=== PATIENT | male | born 1940 | race Caucasian/White ===

== ENCOUNTER 2021-05-27 23:32 | Emergency (ER) | payer BC, MEDICAID ==
[~2021-05-27] VITALS: Ht 170.2 cm; Wt 83.9 kg
[2021-05-27 23:32] VITALS: BP_SYST 147
[2021-05-28] MEDS ORDERED: NACL 0.9% 1,000 ML IV ONE (01:15)
[2021-05-28 02:13] LABS: ANION GAP 14 (5-15); CALCIUM 8.3 mg/dL (8.4-11.0); CHLORIDE 106 mmol/L (98-107); CREATININE 0.65 mg/dL (0.55-1.30); GLUCOSE 100 mg/dL (70-99); POTASSIUM 3.1 mmol/L (3.5-5.1); SODIUM SERUM 144 mmol/L (136-145); UREA NITROGEN, BLOOD 11 mg/dL (8-21)
[2021-05-28 02:19] LABS: ALANINE AMINOTRANSFERASE 33 U/L (12-78); ALBUMIN 3.5 g/dL (3.4-4.8); ALCOHOL, BLOOD 147 mg/dL (<10); ASPARTATE AMINOTRANSFERASE 36 U/L (10-37); TOTAL BILIRUBIN 0.5 mg/dL (0.0-1.0)
[2021-05-28] MEDS ORDERED: ACETAMINOPHEN 500 MG TABLET PO ONE (03:00)
[2021-05-28] MEDS ORDERED: ONDANSETRON HCL 4 MG/2 ML VIAL IVP ONE (03:00)
[2021-05-28] MEDS ORDERED: PANTOPRAZOLE SODIUM 40 MG/VIAL (PROTONIX) IVP ONE (04:15)
[2021-05-28] MEDS ORDERED: METOCLOPRAMIDE HCL 10 MG/2 ML VIAL IVP ONE (04:15)
[2021-05-28] MEDS ORDERED: FOLIC ACID 1 MG, THIAMINE HCL 100 MG, MAGNESIUM SULFATE 1 GM, MVI 10 ML in NACL 0.9% 1,... IV ONE (04:15)
[2021-05-28] MEDS ORDERED: FOLIC ACID 5 MG/ML VIAL IV ONE (04:19)
[2021-05-28] MEDS ORDERED: MAGNESIUM SULFATE 1 GM/2 ML VIAL ONE (04:19)
[2021-05-28] MEDS ORDERED: THIAMINE HCL 100 MG/ML VIAL ONE (04:19)
[2021-05-28] MEDS ORDERED: LORazepam 2 MG/ML VIAL ONE (04:59)
[2021-05-28] MEDS ORDERED: LORazepam 2 MG/ML VIAL IVP ONE (05:00)
[2021-05-28 05:18] LABS: BASOPHILS % (AUTO) 0.9 % (0.0-2.0); EOSINOPHILS % (AUTO) 0.8 % (0.0-4.0); HEMATOCRIT 35.8 % (36-54); HEMOGLOBIN 11.9 g/dL (14.0-18.0); LYMPHOCYTES # (AUTO) 1.3 K/uL (1.0-5.5); LYMPHOCYTES % (AUTO) 35.4 % (20.5-51.5); MEAN CORPUSCULAR HEMOGLOBIN 28 pg (27-31); MEAN CORPUSCULAR HGB CONC 33 % (32-36); MEAN CORPUSCULAR VOLUME 85 fL (79.0-98.0); MONOCYTES # (AUTO) 0.3 K/uL (0.0-1.0); MONOCYTES % (AUTO) 9.6 % (1.7-9.3); NEUTROPHILS # (AUTO) 1.9 K/uL (1.8-7.7); NEUTROPHILS % (AUTO) 53.3 % (40.0-70.0); PLATELET COUNT (AUTO) 86 K/uL (130-430); RED BLOOD CELL COUNT(AUTO) 4.21 MIL/uL (4.2-6.2); WHITE BLOOD COUNT (AUTO) 3.6 K/uL (4.8-10.8)
[2021-05-28] MEDS ORDERED: KCL 20 mEq in 100 mL (PREMIX) 100 ML IV ONE (05:45)
[2021-05-28] MEDS ORDERED: PANT20TA2 PO (06:16)
[2021-05-28] MEDS ORDERED: DOXY25TA61 PO (06:18)
[2021-05-28 08:45] VITALS: BP_SYST 129
== END 2021-05-28 11:20 | disposition home or self-care (01) ==
LOC: SED 23:32
DX: F10.239 Alcohol dependence with withdrawal, unspecified (principal); E87.6 Hypokalemia; Z79.899 Other long term (current) drug therapy; Y90.6 Blood alcohol level of 120-199 mg/100 ml
CPT/HCPCS: 36415; 80053; 85025; 96361; 96365; 96366; 96368; 96375; 99285; C9113; G0482; J2060; J2405; J2765; J3480; J7030; J3411; J3475; J3490

== ENCOUNTER 2021-06-14 19:28 | Emergency (ER) | payer BC, MEDICAID ==
[~2021-06-14] VITALS: Ht 162.6 cm; Wt 63.5 kg
[2021-06-14 19:28] VITALS: BP_SYST 136
[~2021-06-14 19:28] MED LIST: DOXY25TA61 PO; PANT20TA2 PO
[2021-06-14] MEDS ORDERED: NACL 0.9% 1,000 ML IV ONE (20:15)
[2021-06-14 20:31] LABS: HEMOGLOBIN 11.3 g/dL (14.0-18.0); MEAN CORPUSCULAR VOLUME 87 fL (79.0-98.0); MONOCYTES # (AUTO) 0.3 K/uL (0.0-1.0); PLATELET COUNT (AUTO) 70 K/uL (130-430); RED CELL DISTRIBUTION WIDTH 17.9 % (9.0-15.0); WHITE BLOOD COUNT (AUTO) 3.3 K/uL (4.8-10.8)
[2021-06-14 20:45] LABS: BASOPHILS % (AUTO) 1.4 % (0.0-2.0); EOSINOPHILS % (AUTO) 0.3 % (0.0-4.0); HEMATOCRIT 33.8 % (36-54); LYMPHOCYTES # (AUTO) 0.9 K/uL (1.0-5.5); LYMPHOCYTES % (AUTO) 28.4 % (20.5-51.5); MEAN CORPUSCULAR HEMOGLOBIN 29 pg (27-31); MEAN CORPUSCULAR HGB CONC 34 % (32-36); MONOCYTES % (AUTO) 8.4 % (1.7-9.3); NEUTROPHILS % (AUTO) 61.5 % (40.0-70.0)
[2021-06-14 20:47] LABS: ANION GAP 16 (5-15); CALCIUM 8.2 mg/dL (8.4-11.0); CHLORIDE 102 mmol/L (98-107); CREATININE 0.83 mg/dL (0.55-1.30); GLUCOSE 69 mg/dL (70-99); POTASSIUM 3.5 mmol/L (3.5-5.1); SODIUM SERUM 139 mmol/L (136-145); UREA NITROGEN, BLOOD 17 mg/dL (8-21)
[2021-06-14 20:52] LABS: ALANINE AMINOTRANSFERASE 50 U/L (12-78); ALBUMIN 3.8 g/dL (3.4-4.8); ALCOHOL, BLOOD 289 mg/dL (<10); ASPARTATE AMINOTRANSFERASE 77 U/L (10-37); TOTAL BILIRUBIN 0.9 mg/dL (0.0-1.0)
[2021-06-15 05:39] VITALS: BP_SYST 157
[2021-07-06] MEDS ORDERED: AMIT25TA10 PO (12:17)
[2021-07-06] MEDS ORDERED: ASA81 PO (12:17)
[2021-07-06] MEDS ORDERED: LISI10TA29 PO (12:17)
[2021-07-06] MEDS ORDERED: METO-542 PO (12:17)
== END 2021-06-15 06:02 | disposition home or self-care (01) ==
LOC: SED 19:28
DX: F10.229 Alcohol dependence with intoxication, unspecified (principal); Z79.899 Other long term (current) drug therapy; Y90.8 Blood alcohol level of 240 mg/100 ml or more
CPT/HCPCS: 36415; 70450; 71045; 76376; 80053; 82962; 84484; 85025; 93005; 96360; 99285; G0482; J7030

== ENCOUNTER 2021-07-11 21:42 | Emergency (ER) | payer BC, MEDICAID ==
[2021-07-11 21:42] VITALS: BP_SYST 133
[~2021-07-11 21:42] MED LIST changes: +AMIT25TA10 PO; +ASA81 PO; +LISI10TA29 PO; +METO-542 PO
[2021-07-11] MEDS ORDERED: IBUPROFEN 600 MG TABLET PO ONE (23:45)
[2021-07-12 00:33] LABS: BILIRUBIN,URINE NEGATIVE (NEGATIVE); CLARITY/URINE CLEAR (CLEAR); COLOR,URINE YELLOW (YELLOW); GLUCOSE,URINE NEGATIVE (NEGATIVE); KETONES,URINE NEGATIVE (NEGATIVE); LEUKOCYTE ESTERASE ,URINE NEGATIVE (NEGATIVE); NITRITE, URINE NEGATIVE (NEGATIVE); PROTEIN URINE NEGATIVE (NEGATIVE); UROBILINOGEN,URINE 0.2 (0.2-1.0)
[2021-07-12 00:44] LABS: BLOOD, URINE TRACE (NEGATIVE)
[2021-07-12 00:46] LABS: MUCUS,URINE None Seen /LPF (None Seen); RBC,URINE 0-3 /HPF (0-3); WBC,URINE 0-3 /HPF (0-3)
[2021-07-12 00:50] LABS: BARBITURATE, URINE NEGATIVE (NEG <=200); BENZODIAZEPINE, URINE POSITIVE (NEG <=150); METHAMPHETAMINES SCREEN,URINE NEGATIVE (NEG <=500); URINE AMPHETAMINE NEGATIVE (NEG <=500); URINE METHADONE NEGATIVE (NEG <=200)
[2021-07-12 00:51] LABS: CANNABINOID, URINE NEGATIVE (NEG <=50); COCAINE, URINE NEGATIVE (NEG <=150); OPIATE, URINE NEGATIVE (NEG <=100); PHENCYCLIDINE SCREEN,URINE NEGATIVE (NEG <=25); UR TRICYCLIC ANTIDEPRESSANTS POSITIVE (NEG <=300); URINE OXYCODONE SCREEN NEGATIVE (NEG <=100); URINE PROPOXYPHENE SCREEN NEGATIVE (NEG <=300)
[2021-07-12 01:00] LABS: BASOPHILS % (AUTO) 1.1 % (0.0-2.0); EOSINOPHILS % (AUTO) 0.8 % (0.0-4.0); HEMATOCRIT 32.1 % (36-54); HEMOGLOBIN 10.8 g/dL (14.0-18.0); LYMPHOCYTES # (AUTO) 0.6 K/uL (1.0-5.5); LYMPHOCYTES % (AUTO) 17.5 % (20.5-51.5); MEAN CORPUSCULAR HEMOGLOBIN 29 pg (27-31); MEAN CORPUSCULAR HGB CONC 34 % (32-36); MEAN CORPUSCULAR VOLUME 86 fL (79.0-98.0); MONOCYTES # (AUTO) 0.3 K/uL (0.0-1.0); MONOCYTES % (AUTO) 8.9 % (1.7-9.3); NEUTROPHILS # (AUTO) 2.6 K/uL (1.8-7.7); NEUTROPHILS % (AUTO) 71.7 % (40.0-70.0); PLATELET COUNT (AUTO) 117 K/uL (130-430); RED BLOOD CELL COUNT(AUTO) 3.76 MIL/uL (4.2-6.2); RED CELL DISTRIBUTION WIDTH 15.4 % (9.0-15.0); WHITE BLOOD COUNT (AUTO) 3.6 K/uL (4.8-10.8)
[2021-07-12 01:04] LABS: PROTHROMBIN TIME 10.3 SECS (9.5-12.5)
[2021-07-12 01:05] LABS: ANION GAP 14 (5-15); CALCIUM 8.3 mg/dL (8.4-11.0); CHLORIDE 102 mmol/L (98-107); CREATININE 0.88 mg/dL (0.55-1.30); GLUCOSE 110 mg/dL (70-99); POTASSIUM 4.3 mmol/L (3.5-5.1); SODIUM SERUM 136 mmol/L (136-145); UREA NITROGEN, BLOOD 19 mg/dL (8-21)
[2021-07-12 01:09] LABS: ALANINE AMINOTRANSFERASE 24 U/L (12-78); ALBUMIN 3.5 g/dL (3.4-4.8); ALCOHOL, BLOOD 74 mg/dL (<10); ASPARTATE AMINOTRANSFERASE 21 U/L (10-37); TOTAL BILIRUBIN 0.2 mg/dL (0.0-1.0)
[2021-07-12] MEDS ORDERED: HYDROcodone/ACETAMIN 7.5-325 MG TAB PO ONE (04:00)
[2021-07-12 04:15] LABS: BACTERIA,URINE RARE /HPF (None Seen)
[2021-07-12 05:36] VITALS: BP_SYST 163
== END 2021-07-12 05:40 | disposition home or self-care (01) ==
LOC: SED 21:42
DX: S42.352A Displaced comminuted fracture of shaft of humerus, left arm, initial encounter for closed fracture (principal); S09.90XA Unspecified injury of head, initial encounter; F10.129 Alcohol abuse with intoxication, unspecified; D53.9 Nutritional anemia, unspecified; Z79.82 Long term (current) use of aspirin; Z79.899 Other long term (current) drug therapy; Y90.3 Blood alcohol level of 60-79 mg/100 ml; W18.39XA Other fall on same level, initial encounter; Y93.89 Activity, other specified; Y92.89 Other specified places as the place of occurrence of the external cause; Y99.8 Other external cause status
CPT/HCPCS: 36415; 70450; 71045; 73030; 76376; 80053; 80307; 81000; 82962; 84484; 85025; 85610; 85730; 93005; 99285; G0482

== ENCOUNTER 2021-07-13 19:36 | Inpatient (IN) | payer BC, MEDICAID ==
[~2021-07-13] VITALS: Ht 162.6 cm; Wt 65.3 kg
[2021-07-13 19:45] VITALS: BP_SYST 118
[2021-07-13] MEDS ORDERED: chlordiazePOXIDE HCL 25 MG CAPSULE PO ONE (21:15)
[2021-07-13] MEDS ORDERED: NACL 0.9% 1,000 ML IV ONE (21:15)
[2021-07-13] MEDS ORDERED: FOLIC ACID 1 MG, THIAMINE HCL 100 MG, MAGNESIUM SULFATE 2 GM, MVI 10 ML in NACL 0.9% 1,... IV ONE (21:15)
[2021-07-13 21:18] LABS: BASOPHILS % (AUTO) 0.2 % (0.0-2.0); HEMATOCRIT 31.3 % (36-54); HEMOGLOBIN 10.4 g/dL (14.0-18.0); LYMPHOCYTES # (AUTO) 0.6 K/uL (1.0-5.5); LYMPHOCYTES % (AUTO) 7.8 % (20.5-51.5); MEAN CORPUSCULAR HEMOGLOBIN 29 pg (27-31); MEAN CORPUSCULAR HGB CONC 33 % (32-36); MEAN CORPUSCULAR VOLUME 87 fL (79.0-98.0); MONOCYTES # (AUTO) 0.8 K/uL (0.0-1.0); MONOCYTES % (AUTO) 9.2 % (1.7-9.3); NEUTROPHILS # (AUTO) 6.7 K/uL (1.8-7.7); NEUTROPHILS % (AUTO) 82.8 % (40.0-70.0); PLATELET COUNT (AUTO) 152 K/uL (130-430); RED BLOOD CELL COUNT(AUTO) 3.62 MIL/uL (4.2-6.2); RED CELL DISTRIBUTION WIDTH 15.8 % (9.0-15.0); WHITE BLOOD COUNT (AUTO) 8.1 K/uL (4.8-10.8)
[2021-07-13] MEDS ORDERED: THIAMINE HCL 100 MG/ML VIAL ONE (21:27)
[2021-07-13] MEDS ORDERED: MVI 10 ML VIAL IV ONE (21:27)
[2021-07-13] MEDS ORDERED: FOLIC ACID 5 MG/ML VIAL IV ONE (21:27)
[2021-07-13] MEDS ORDERED: MAGNESIUM SULFATE 1 GM/2 ML VIAL ONE (21:27)
[2021-07-13 21:28] LABS: ANION GAP 17 (5-15); CALCIUM 8.5 mg/dL (8.4-11.0); CHLORIDE 100 mmol/L (98-107); CREATININE 1.41 mg/dL (0.55-1.30); GLUCOSE 125 mg/dL (70-99); POTASSIUM 4.4 mmol/L (3.5-5.1); SODIUM SERUM 133 mmol/L (136-145); UREA NITROGEN, BLOOD 20 mg/dL (8-21)
[2021-07-13 21:30] LABS: PROTHROMBIN TIME 10.3 SECS (9.5-12.5)
[2021-07-13 21:34] LABS: ALANINE AMINOTRANSFERASE 27 U/L (12-78); ALBUMIN 3.4 g/dL (3.4-4.8); ALCOHOL, BLOOD 244 mg/dL (<10); ASPARTATE AMINOTRANSFERASE 26 U/L (10-37); TOTAL BILIRUBIN 0.5 mg/dL (0.0-1.0)
[2021-07-13 22:13] LABS: BARBITURATE, URINE NEGATIVE (NEG <=200); BENZODIAZEPINE, URINE POSITIVE (NEG <=150); CANNABINOID, URINE NEGATIVE (NEG <=50); COCAINE, URINE NEGATIVE (NEG <=150); METHAMPHETAMINES SCREEN,URINE NEGATIVE (NEG <=500); OPIATE, URINE POSITIVE (NEG <=100); PHENCYCLIDINE SCREEN,URINE NEGATIVE (NEG <=25); UR TRICYCLIC ANTIDEPRESSANTS NEGATIVE (NEG <=300); URINE AMPHETAMINE NEGATIVE (NEG <=500); URINE METHADONE NEGATIVE (NEG <=200); URINE OXYCODONE SCREEN NEGATIVE (NEG <=100); URINE PROPOXYPHENE SCREEN NEGATIVE (NEG <=300)
[2021-07-14] MEDS: LORazepam 2 MG/ML VIAL IVP PRN ×6 (02:37→22:14)
[2021-07-14] MEDS: KETOROLAC TROMETHAMINE 30 MG VIAL IVP PRN (03:19)
[2021-07-14] MEDS: NACL 0.9% 1,000 ML IV SCH ×3 (03:20→22:38)
[2021-07-14] MEDS ORDERED: DIPHENHYDRAMINE INJ 50 MG/ML VIAL IVP ONE (08:45)
[2021-07-14] MEDS ORDERED: HALOPERIDOL LACTATE 5 MG/ML VIAL IVP ONE (08:45)
[2021-07-14] MEDS: chlordiazePOXIDE HCL 25 MG CAPSULE PO SCH ×3 (08:55→20:43)
[2021-07-14] MEDS ORDERED: OLANZapine IntraMuscular 10 MG VIAL (FOR I.M. INJECTION ONLY) IM ONE (09:30)
[2021-07-14 10:35] VITALS: BP_SYST 119
[2021-07-14 11:00] VITALS: BP_SYST 119
[2021-07-14] MEDS ORDERED: MAGNESIUM SULFATE 50 ML IV PRN (11:00)
[2021-07-14] MEDS ORDERED: FOLIC ACID 1 MG, THIAMINE HCL 100 MG, MAGNESIUM SULFATE 1 GM, MVI 10 ML in NACL 0.9% 1,... IV SCH (11:00)
[2021-07-14] MEDS: FOLIC ACID 1 MG, MVI 10 ML in NACL 0.9% 1,000 ML IV SCH (11:39)
[2021-07-14] MEDS: THIAMINE HCL 100 MG, MAGNESIUM SULFATE 1 GM in NS 100 ML IV SCH (11:39)
[2021-07-14 14:35] LABS: FREE T4 (FREE THYROXINE) 1.3 ng/dl (0.8-1.5); THYROID STIMULATING HORMONE 0.65 uIu/mL (0.36-3.74)
[2021-07-14 16:23] VITALS: BP_SYST 124
[2021-07-15 00:15] VITALS: BP_SYST 127
[2021-07-15] MEDS ORDERED: LACTULOSE 20 GM/30 ML UDC PO ONE (01:00)
[2021-07-15] MEDS: LORazepam 2 MG/ML VIAL IVP PRN ×3 (03:12→16:12)
[2021-07-15 07:22] LABS: EOSINOPHILS % (AUTO) 0.9 % (0.0-4.0); HEMATOCRIT 26.7 % (36-54); HEMOGLOBIN 8.8 g/dL (14.0-18.0); LYMPHOCYTES # (AUTO) 0.7 K/uL (1.0-5.5); LYMPHOCYTES % (AUTO) 18.1 % (20.5-51.5); MEAN CORPUSCULAR HEMOGLOBIN 29 pg (27-31); MEAN CORPUSCULAR HGB CONC 33 % (32-36); MEAN CORPUSCULAR VOLUME 87 fL (79.0-98.0); MONOCYTES # (AUTO) 0.5 K/uL (0.0-1.0); MONOCYTES % (AUTO) 11.9 % (1.7-9.3); NEUTROPHILS # (AUTO) 2.8 K/uL (1.8-7.7); NEUTROPHILS % (AUTO) 68.1 % (40.0-70.0); PLATELET COUNT (AUTO) 122 K/uL (130-430); RED BLOOD CELL COUNT(AUTO) 3.07 MIL/uL (4.2-6.2); RED CELL DISTRIBUTION WIDTH 15.2 % (9.0-15.0); WHITE BLOOD COUNT (AUTO) 4.1 K/uL (4.8-10.8)
[2021-07-15 08:00] VITALS: BP_SYST 122
[2021-07-15 09:37] LABS: ALANINE AMINOTRANSFERASE 18 U/L (12-78); ALBUMIN 2.5 g/dL (3.4-4.8); ANION GAP 11 (5-15); ASPARTATE AMINOTRANSFERASE 23 U/L (10-37); CALCIUM 7.3 mg/dL (8.4-11.0); CHLORIDE 111 mmol/L (98-107); CREATININE 0.63 mg/dL (0.55-1.30); GLUCOSE 86 mg/dL (70-99); PHOSPHORUS 2.8 mg/dL (2.7-4.5); POTASSIUM 3.5 mmol/L (3.5-5.1); SODIUM SERUM 142 mmol/L (136-145); UREA NITROGEN, BLOOD 10 mg/dL (8-21)
[2021-07-15] MEDS: chlordiazePOXIDE HCL 25 MG CAPSULE PO SCH ×3 (10:35→20:31)
[2021-07-15] MEDS: NACL 0.9% 1,000 ML IV SCH ×2 (10:35→16:15)
[2021-07-15] MEDS: LACTULOSE 20 GM/30 ML UDC PO SCH (10:35)
[2021-07-15 12:00] VITALS: BP_SYST 127
[2021-07-15] MEDS: FOLIC ACID 1 MG, MVI 10 ML in NACL 0.9% 1,000 ML IV SCH (12:33)
[2021-07-15] MEDS: THIAMINE HCL 100 MG, MAGNESIUM SULFATE 1 GM in NS 100 ML IV SCH (12:34)
[2021-07-15 15:31] LABS: BARBITURATE, URINE NEGATIVE (NEG <=200)
[2021-07-15 15:32] LABS: BENZODIAZEPINE, URINE POSITIVE (NEG <=150); CANNABINOID, URINE NEGATIVE (NEG <=50); COCAINE, URINE NEGATIVE (NEG <=150); METHAMPHETAMINES SCREEN,URINE NEGATIVE (NEG <=500); OPIATE, URINE NEGATIVE (NEG <=100); PHENCYCLIDINE SCREEN,URINE NEGATIVE (NEG <=25); UR TRICYCLIC ANTIDEPRESSANTS NEGATIVE (NEG <=300); URINE AMPHETAMINE NEGATIVE (NEG <=500); URINE METHADONE NEGATIVE (NEG <=200); URINE OXYCODONE SCREEN NEGATIVE (NEG <=100); URINE PROPOXYPHENE SCREEN NEGATIVE (NEG <=300)
[2021-07-15 16:00] VITALS: BP_SYST 118
[2021-07-15 20:30] VITALS: BP_SYST 124
[2021-07-16 00:48] VITALS: BP_SYST 154
[2021-07-16] MEDS: NACL 0.9% 1,000 ML IV SCH ×3 (02:59→23:43)
[2021-07-16 07:56] VITALS: BP_SYST 132
[2021-07-16] MEDS: chlordiazePOXIDE HCL 25 MG CAPSULE PO SCH ×3 (08:27→21:21)
[2021-07-16] MEDS: LACTULOSE 20 GM/30 ML UDC PO SCH (08:27)
[2021-07-16 09:05] LABS: PHOSPHORUS 3.6 mg/dL (2.7-4.5)
[2021-07-16] MEDS: THIAMINE HCL 100 MG, MAGNESIUM SULFATE 1 GM in NS 100 ML IV SCH (11:43)
[2021-07-16] MEDS: FOLIC ACID 1 MG, MVI 10 ML in NACL 0.9% 1,000 ML IV SCH (11:43)
[2021-07-16 12:00] VITALS: BP_SYST 128
[2021-07-16] MEDS ORDERED: FOLI-43 PO (12:20)
[2021-07-16] MEDS ORDERED: THIA100T73 PO (12:20)
[2021-07-16 16:42] VITALS: BP_SYST 152
[2021-07-16 19:00] VITALS: BP_SYST 158
[2021-07-16 20:00] VITALS: BP_SYST 152
[2021-07-16] MEDS: KETOROLAC TROMETHAMINE 30 MG VIAL IVP PRN (21:21)
[2021-07-17 06:28] LABS: BASOPHILS % (AUTO) 0.9 % (0.0-2.0); EOSINOPHILS % (AUTO) 1.5 % (0.0-4.0); HEMATOCRIT 24.1 % (36-54); HEMOGLOBIN 8.1 g/dL (14.0-18.0); LYMPHOCYTES % (AUTO) 30.2 % (20.5-51.5); MEAN CORPUSCULAR HEMOGLOBIN 29 pg (27-31); MEAN CORPUSCULAR HGB CONC 34 % (32-36); MEAN CORPUSCULAR VOLUME 86 fL (79.0-98.0); MONOCYTES # (AUTO) 0.3 K/uL (0.0-1.0); MONOCYTES % (AUTO) 10.9 % (1.7-9.3); NEUTROPHILS # (AUTO) 1.8 K/uL (1.8-7.7); NEUTROPHILS % (AUTO) 56.5 % (40.0-70.0); PLATELET COUNT (AUTO) 131 K/uL (130-430); RED BLOOD CELL COUNT(AUTO) 2.82 MIL/uL (4.2-6.2); RED CELL DISTRIBUTION WIDTH 14.9 % (9.0-15.0); WHITE BLOOD COUNT (AUTO) 3.2 K/uL (4.8-10.8)
[2021-07-17 08:10] VITALS: BP_SYST 145
[2021-07-17 08:54] LABS: ALANINE AMINOTRANSFERASE 15 U/L (12-78); ALBUMIN 2.1 g/dL (3.4-4.8); ANION GAP 9 (5-15); ASPARTATE AMINOTRANSFERASE 15 U/L (10-37); CALCIUM 7.5 mg/dL (8.4-11.0); CHLORIDE 112 mmol/L (98-107); CREATININE 0.57 mg/dL (0.55-1.30); GLUCOSE 114 mg/dL (70-99); PHOSPHORUS 3.9 mg/dL (2.7-4.5); SODIUM SERUM 143 mmol/L (136-145); TOTAL BILIRUBIN 0.5 mg/dL (0.0-1.0); UREA NITROGEN, BLOOD 9 mg/dL (8-21)
[2021-07-17] MEDS: NACL 0.9% 1,000 ML IV SCH ×2 (09:02→20:52)
[2021-07-17] MEDS: chlordiazePOXIDE HCL 25 MG CAPSULE PO SCH ×3 (09:02→20:48)
[2021-07-17] MEDS: LACTULOSE 20 GM/30 ML UDC PO SCH (09:02)
[2021-07-17 09:43] LABS: POTASSIUM 2.9 mmol/L (3.5-5.1)
[2021-07-17] MEDS: POTASSIUM CHLORIDE 40 MEQ, LIDOCAINE JECT 2% PF 100 MG 50 MG in NS 250 ML IV PRN (10:57)
[2021-07-17 12:30] VITALS: BP_SYST 139
[2021-07-17] MEDS: FOLIC ACID 1 MG, MVI 10 ML in NACL 0.9% 1,000 ML IV SCH (12:52)
[2021-07-17] MEDS: THIAMINE HCL 100 MG, MAGNESIUM SULFATE 1 GM in NS 100 ML IV SCH (12:52)
[2021-07-17 15:59] VITALS: BP_SYST 141
[2021-07-17 20:02] VITALS: BP_SYST 152
[2021-07-17] MEDS: KETOROLAC TROMETHAMINE 30 MG VIAL IVP PRN (20:54)
[2021-07-17 23:15] VITALS: BP_SYST 150
[2021-07-18] VITALS: BP_SYST 150
[2021-07-18] MEDS: NACL 0.9% 1,000 ML IV SCH ×2 (05:37→15:23)
[2021-07-18] MEDS: KETOROLAC TROMETHAMINE 30 MG VIAL IVP PRN (05:49)
[2021-07-18 06:58] LABS: BASOPHILS % (AUTO) 0.8 % (0.0-2.0); EOSINOPHILS # (AUTO) 0.1 K/uL (0.0-0.4); EOSINOPHILS % (AUTO) 1.8 % (0.0-4.0); HEMATOCRIT 25.7 % (36-54); HEMOGLOBIN 8.6 g/dL (14.0-18.0); LYMPHOCYTES % (AUTO) 23.3 % (20.5-51.5); MEAN CORPUSCULAR HEMOGLOBIN 29 pg (27-31); MEAN CORPUSCULAR HGB CONC 34 % (32-36); MEAN CORPUSCULAR VOLUME 86 fL (79.0-98.0); MONOCYTES # (AUTO) 0.4 K/uL (0.0-1.0); MONOCYTES % (AUTO) 8.3 % (1.7-9.3); NEUTROPHILS # (AUTO) 2.9 K/uL (1.8-7.7); NEUTROPHILS % (AUTO) 65.8 % (40.0-70.0); PLATELET COUNT (AUTO) 134 K/uL (130-430); RED BLOOD CELL COUNT(AUTO) 2.99 MIL/uL (4.2-6.2); WHITE BLOOD COUNT (AUTO) 4.4 K/uL (4.8-10.8)
[2021-07-18 07:47] LABS: ALANINE AMINOTRANSFERASE 16 U/L (12-78); ALBUMIN 2.5 g/dL (3.4-4.8); ANION GAP 10 (5-15); ASPARTATE AMINOTRANSFERASE 18 U/L (10-37); CALCIUM 8.3 mg/dL (8.4-11.0); CHLORIDE 109 mmol/L (98-107); CREATININE 0.59 mg/dL (0.55-1.30); GLUCOSE 98 mg/dL (70-99); POTASSIUM 3.2 mmol/L (3.5-5.1); SODIUM SERUM 142 mmol/L (136-145); TOTAL BILIRUBIN 0.7 mg/dL (0.0-1.0); UREA NITROGEN, BLOOD 9 mg/dL (8-21)
[2021-07-18 08:00] VITALS: BP_SYST 150
[2021-07-18] MEDS: LACTULOSE 20 GM/30 ML UDC PO SCH (08:52)
[2021-07-18] MEDS: chlordiazePOXIDE HCL 25 MG CAPSULE PO SCH ×3 (08:52→20:39)
[2021-07-18] MEDS: THIAMINE HCL 100 MG, MAGNESIUM SULFATE 1 GM in NS 100 ML IV SCH (12:07)
[2021-07-18] MEDS: FOLIC ACID 1 MG, MVI 10 ML in NACL 0.9% 1,000 ML IV SCH (12:07)
[2021-07-18 12:34] VITALS: BP_SYST 148
[2021-07-18 16:49] VITALS: BP_SYST 149
[2021-07-19 00:41] VITALS: BP_SYST 160
[2021-07-19] MEDS: NACL 0.9% 1,000 ML IV SCH (03:22)
[2021-07-19 06:54] LABS: BASOPHILS % (AUTO) 0.9 % (0.0-2.0); EOSINOPHILS # (AUTO) 0.1 K/uL (0.0-0.4); EOSINOPHILS % (AUTO) 1.8 % (0.0-4.0); HEMATOCRIT 25.3 % (36-54); HEMOGLOBIN 8.4 g/dL (14.0-18.0); LYMPHOCYTES # (AUTO) 0.9 K/uL (1.0-5.5); LYMPHOCYTES % (AUTO) 21.8 % (20.5-51.5); MEAN CORPUSCULAR HEMOGLOBIN 29 pg (27-31); MEAN CORPUSCULAR HGB CONC 33 % (32-36); MEAN CORPUSCULAR VOLUME 87 fL (79.0-98.0); MONOCYTES # (AUTO) 0.4 K/uL (0.0-1.0); MONOCYTES % (AUTO) 9.7 % (1.7-9.3); NEUTROPHILS # (AUTO) 2.7 K/uL (1.8-7.7); NEUTROPHILS % (AUTO) 65.8 % (40.0-70.0); PLATELET COUNT (AUTO) 127 K/uL (130-430); RED BLOOD CELL COUNT(AUTO) 2.91 MIL/uL (4.2-6.2); RED CELL DISTRIBUTION WIDTH 15.3 % (9.0-15.0)
[2021-07-19 07:48] LABS: ALANINE AMINOTRANSFERASE 14 U/L (12-78); ALBUMIN 2.5 g/dL (3.4-4.8); ANION GAP 11 (5-15); ASPARTATE AMINOTRANSFERASE 14 U/L (10-37); CALCIUM 7.9 mg/dL (8.4-11.0); CHLORIDE 109 mmol/L (98-107); CREATININE 0.51 mg/dL (0.55-1.30); GLUCOSE 94 mg/dL (70-99); PHOSPHORUS 3.6 mg/dL (2.7-4.5); SODIUM SERUM 143 mmol/L (136-145); TOTAL BILIRUBIN 0.7 mg/dL (0.0-1.0); UREA NITROGEN, BLOOD 6 mg/dL (8-21)
[2021-07-19] MEDS: chlordiazePOXIDE HCL 25 MG CAPSULE PO SCH ×3 (08:32→21:02)
[2021-07-19] MEDS: LACTULOSE 20 GM/30 ML UDC PO SCH (08:32)
[2021-07-19] MEDS ORDERED: TRAM50TA2 PO (08:46)
[2021-07-19 09:00] VITALS: BP_SYST 164
[2021-07-19 12:27] VITALS: BP_SYST 159
[2021-07-19] MEDS: FOLIC ACID 1 MG, MVI 10 ML in NACL 0.9% 1,000 ML IV SCH (12:27)
[2021-07-19] MEDS: THIAMINE HCL 100 MG, MAGNESIUM SULFATE 1 GM in NS 100 ML IV SCH (12:28)
[2021-07-19 16:55] VITALS: BP_SYST 155
[2021-07-20 00:56] VITALS: BP_SYST 159
[2021-07-20 08:00] VITALS: BP_SYST 157
[2021-07-20] MEDS: chlordiazePOXIDE HCL 25 MG CAPSULE PO SCH ×3 (08:03→20:11)
[2021-07-20] MEDS: LACTULOSE 20 GM/30 ML UDC PO SCH (08:03)
[2021-07-20] MEDS: NACL 0.9% 1,000 ML IV SCH (08:04)
[2021-07-20 09:06] LABS: BASOPHILS % (AUTO) 0.6 % (0.0-2.0); EOSINOPHILS # (AUTO) 0.1 K/uL (0.0-0.4); EOSINOPHILS % (AUTO) 1.4 % (0.0-4.0); HEMATOCRIT 26.6 % (36-54); HEMOGLOBIN 8.6 g/dL (14.0-18.0); LYMPHOCYTES # (AUTO) 0.9 K/uL (1.0-5.5); LYMPHOCYTES % (AUTO) 18.1 % (20.5-51.5); MEAN CORPUSCULAR HEMOGLOBIN 29 pg (27-31); MEAN CORPUSCULAR HGB CONC 32 % (32-36); MEAN CORPUSCULAR VOLUME 88 fL (79.0-98.0); MONOCYTES # (AUTO) 0.5 K/uL (0.0-1.0); MONOCYTES % (AUTO) 9.6 % (1.7-9.3); NEUTROPHILS # (AUTO) 3.7 K/uL (1.8-7.7); NEUTROPHILS % (AUTO) 70.3 % (40.0-70.0); PLATELET COUNT (AUTO) 120 K/uL (130-430); RED BLOOD CELL COUNT(AUTO) 3.01 MIL/uL (4.2-6.2); RED CELL DISTRIBUTION WIDTH 15.4 % (9.0-15.0); WHITE BLOOD COUNT (AUTO) 5.2 K/uL (4.8-10.8)
[2021-07-20 09:23] LABS: ALANINE AMINOTRANSFERASE 15 U/L (12-78); ALBUMIN 2.6 g/dL (3.4-4.8); ANION GAP 6 (5-15); ASPARTATE AMINOTRANSFERASE 19 U/L (10-37); CALCIUM 7.9 mg/dL (8.4-11.0); CHLORIDE 108 mmol/L (98-107); GLUCOSE 124 mg/dL (70-99); POTASSIUM 3.3 mmol/L (3.5-5.1); SODIUM SERUM 135 mmol/L (136-145); TOTAL BILIRUBIN 0.5 mg/dL (0.0-1.0); UREA NITROGEN, BLOOD 7 mg/dL (8-21)
[2021-07-20 11:37] VITALS: BP_SYST 145
[2021-07-20] MEDS: THIAMINE HCL 100 MG, MAGNESIUM SULFATE 1 GM in NS 100 ML IV SCH (14:53)
[2021-07-20 15:55] VITALS: BP_SYST 142
[2021-07-20 19:53] VITALS: BP_SYST 137
[2021-07-20] MEDS: LORazepam 2 MG/ML VIAL IVP PRN (23:33)
[2021-07-21 01:04] VITALS: BP_SYST 148
[2021-07-21] MEDS: FOLIC ACID 1 MG, MVI 10 ML in NACL 0.9% 1,000 ML IV SCH ×2 (02:03→12:00)
[2021-07-21] MEDS: NACL 0.9% 1,000 ML IV SCH (02:09)
[2021-07-21 08:29] VITALS: BP_SYST 166
[2021-07-21] MEDS: chlordiazePOXIDE HCL 25 MG CAPSULE PO SCH ×3 (08:53→20:57)
[2021-07-21] MEDS: LACTULOSE 20 GM/30 ML UDC PO SCH (08:53)
[2021-07-21 09:33] LABS: BASOPHILS % (AUTO) 0.7 % (0.0-2.0); EOSINOPHILS # (AUTO) 0.1 K/uL (0.0-0.4); EOSINOPHILS % (AUTO) 1.5 % (0.0-4.0); HEMOGLOBIN 9.9 g/dL (14.0-18.0); LYMPHOCYTES # (AUTO) 1.1 K/uL (1.0-5.5); LYMPHOCYTES % (AUTO) 22.5 % (20.5-51.5); MEAN CORPUSCULAR HEMOGLOBIN 29 pg (27-31); MEAN CORPUSCULAR HGB CONC 32 % (32-36); MEAN CORPUSCULAR VOLUME 90 fL (79.0-98.0); MONOCYTES # (AUTO) 0.5 K/uL (0.0-1.0); MONOCYTES % (AUTO) 10.4 % (1.7-9.3); NEUTROPHILS # (AUTO) 3.2 K/uL (1.8-7.7); NEUTROPHILS % (AUTO) 64.9 % (40.0-70.0); PLATELET COUNT (AUTO) 119 K/uL (130-430); RED BLOOD CELL COUNT(AUTO) 3.44 MIL/uL (4.2-6.2); RED CELL DISTRIBUTION WIDTH 15.8 % (9.0-15.0); WHITE BLOOD COUNT (AUTO) 4.9 K/uL (4.8-10.8)
[2021-07-21 09:55] LABS: ALANINE AMINOTRANSFERASE 12 U/L (12-78); ALBUMIN 2.9 g/dL (3.4-4.8); ANION GAP 11 (5-15); ASPARTATE AMINOTRANSFERASE 16 U/L (10-37); CALCIUM 8.5 mg/dL (8.4-11.0); CHLORIDE 109 mmol/L (98-107); CREATININE 0.59 mg/dL (0.55-1.30); GLUCOSE 101 mg/dL (70-99); POTASSIUM 3.9 mmol/L (3.5-5.1); SODIUM SERUM 142 mmol/L (136-145); TOTAL BILIRUBIN 0.5 mg/dL (0.0-1.0); UREA NITROGEN, BLOOD 8 mg/dL (8-21)
[2021-07-21 11:29] VITALS: BP_SYST 161
[2021-07-21] MEDS: THIAMINE HCL 100 MG, MAGNESIUM SULFATE 1 GM in NS 100 ML IV SCH (12:00)
[2021-07-21 15:17] VITALS: BP_SYST 150
[2021-07-21 18:37] VITALS: BP_SYST 128
[2021-07-21 20:00] VITALS: BP_SYST 132
[2021-07-22] VITALS: BP_SYST 143
[2021-07-22] MEDS: NACL 0.9% 1,000 ML IV SCH ×3 (07:05→19:15)
[2021-07-22 08:00] VITALS: BP_SYST 143
[2021-07-22] MEDS: chlordiazePOXIDE HCL 25 MG CAPSULE PO SCH ×3 (10:24→21:26)
[2021-07-22] MEDS: LACTULOSE 20 GM/30 ML UDC PO SCH (10:24)
[2021-07-22 12:00] VITALS: BP_SYST 137
[2021-07-22] MEDS: THIAMINE HCL 100 MG, MAGNESIUM SULFATE 1 GM in NS 100 ML IV SCH (12:36)
[2021-07-22] MEDS: FOLIC ACID 1 MG, MVI 10 ML in NACL 0.9% 1,000 ML IV SCH (12:39)
[2021-07-22 16:00] VITALS: BP_SYST 123
[2021-07-22 20:00] VITALS: BP_SYST 128
[2021-07-23 00:30] VITALS: BP_SYST 115
[2021-07-23 08:00] VITALS: BP_SYST 113
[2021-07-23] MEDS: LACTULOSE 20 GM/30 ML UDC PO SCH (09:17)
[2021-07-23] MEDS: chlordiazePOXIDE HCL 25 MG CAPSULE PO SCH ×2 (09:18→15:29)
[2021-07-23] MEDS: PEG 400/HYPROMELLOSE/GLYCERIN 15 ML DROPS OP SCH ×4 (11:00→20:14)
[2021-07-23] MEDS: FOLIC ACID 1 MG, MVI 10 ML in NACL 0.9% 1,000 ML IV SCH (11:00)
[2021-07-23] MEDS: THIAMINE HCL 100 MG, MAGNESIUM SULFATE 1 GM in NS 100 ML IV SCH (11:01)
[2021-07-23] MEDS: NACL 0.9% 1,000 ML IV SCH (11:14)
[2021-07-23 12:27] VITALS: BP_SYST 110
[2021-07-23 15:55] VITALS: BP_SYST 130
[2021-07-23] MEDS ORDERED: IPRATROPIUM/ALBUTEROL SULFATE 3 ML AMPUL.NEB (DUONEB) ONE (15:55)
[2021-07-23] MEDS ORDERED: FUROSEMIDE 40 MG/4 ML VIAL IVP ONE (16:45)
[2021-07-23] MEDS: ACETAMINOPHEN 500 MG TABLET PO PRN (17:20)
[2021-07-23 17:30] VITALS: BP_SYST 123
[2021-07-23 17:40] LABS: ANION GAP 10 (5-15); CALCIUM 7.8 mg/dL (8.4-11.0); CHLORIDE 108 mmol/L (98-107); CREATININE 0.83 mg/dL (0.55-1.30); GLUCOSE 116 mg/dL (70-99); POTASSIUM 3.3 mmol/L (3.5-5.1); SODIUM SERUM 137 mmol/L (136-145); UREA NITROGEN, BLOOD 17 mg/dL (8-21)
[2021-07-23 17:55] LABS: BASOPHILS % (AUTO) 0.3 % (0.0-2.0); EOSINOPHILS % (AUTO) 0.4 % (0.0-4.0); HEMATOCRIT 26.7 % (36-54); HEMOGLOBIN 8.4 g/dL (14.0-18.0); LYMPHOCYTES # (AUTO) 0.3 K/uL (1.0-5.5); LYMPHOCYTES % (AUTO) 5.4 % (20.5-51.5); MEAN CORPUSCULAR HEMOGLOBIN 29 pg (27-31); MEAN CORPUSCULAR HGB CONC 32 % (32-36); MEAN CORPUSCULAR VOLUME 93 fL (79.0-98.0); MONOCYTES # (AUTO) 0.1 K/uL (0.0-1.0); MONOCYTES % (AUTO) 2.2 % (1.7-9.3); NEUTROPHILS # (AUTO) 5.4 K/uL (1.8-7.7); NEUTROPHILS % (AUTO) 91.7 % (40.0-70.0); RED BLOOD CELL COUNT(AUTO) 2.88 MIL/uL (4.2-6.2); RED CELL DISTRIBUTION WIDTH 17.3 % (9.0-15.0); WHITE BLOOD COUNT (AUTO) 5.9 K/uL (4.8-10.8)
[2021-07-23 18:01] LABS: PLATELET COUNT (AUTO) 41 K/uL (130-430)
[2021-07-23 19:09] LABS: BILIRUBIN,URINE NEGATIVE (NEGATIVE); CLARITY/URINE SL CLOUDY (CLEAR); COLOR,URINE YELLOW (YELLOW); GLUCOSE,URINE NEGATIVE (NEGATIVE); KETONES,URINE NEGATIVE (NEGATIVE); LEUKOCYTE ESTERASE ,URINE NEGATIVE (NEGATIVE); NITRITE, URINE NEGATIVE (NEGATIVE); PH,URINE 5.5 (5.0-8.0); PROTEIN URINE TRACE (NEGATIVE)
[2021-07-23 19:27] LABS: BLOOD, URINE TRACE (NEGATIVE)
[2021-07-23 19:44] LABS: BACTERIA,URINE MANY /HPF (None Seen); RBC,URINE 0-3 /HPF (0-3)
[2021-07-23 19:45] LABS: MUCUS,URINE None Seen /LPF (None Seen)
[2021-07-23 20:00] VITALS: BP_SYST 111
[2021-07-24 01:56] VITALS: BP_SYST 118
[2021-07-24] MEDS ORDERED: KCL 40 mEq in 100 mL (PREMIX) 100 ML IV ONE (05:19)
[2021-07-24] MEDS: POTASSIUM CHLORIDE 40 MEQ, LIDOCAINE JECT 2% PF 100 MG 50 MG in NS 250 ML IV PRN (05:49)
[2021-07-24 08:00] VITALS: BP_SYST 121
[2021-07-24 08:07] LABS: ANION GAP 14 (5-15); CALCIUM 8.4 mg/dL (8.4-11.0); CHLORIDE 108 mmol/L (98-107); CREATININE 0.73 mg/dL (0.55-1.30); GLUCOSE 93 mg/dL (70-99); POTASSIUM 3.4 mmol/L (3.5-5.1); SODIUM SERUM 142 mmol/L (136-145); UREA NITROGEN, BLOOD 16 mg/dL (8-21)
[2021-07-24] MEDS ORDERED: AZITHROMYCIN 250 MG TABLET PO ONE (09:00)
[2021-07-24] MEDS: LACTULOSE 20 GM/30 ML UDC PO SCH (09:01)
[2021-07-24] MEDS: PEG 400/HYPROMELLOSE/GLYCERIN 15 ML DROPS OP SCH ×4 (09:01→21:10)
[2021-07-24] MEDS: cefTRIAXone 1 GM in D5W 50 ML IV SCH (11:14)
[2021-07-24 12:14] LABS: BASOPHILS % (AUTO) 0.4 % (0.0-2.0); EOSINOPHILS % (AUTO) 0.3 % (0.0-4.0); HEMATOCRIT 29.2 % (36-54); HEMOGLOBIN 9.4 g/dL (14.0-18.0); LYMPHOCYTES # (AUTO) 0.5 K/uL (1.0-5.5); MEAN CORPUSCULAR HEMOGLOBIN 29 pg (27-31); MEAN CORPUSCULAR HGB CONC 32 % (32-36); MEAN CORPUSCULAR VOLUME 91 fL (79.0-98.0); MONOCYTES # (AUTO) 0.2 K/uL (0.0-1.0); NEUTROPHILS # (AUTO) 5.3 K/uL (1.8-7.7); NEUTROPHILS % (AUTO) 87.3 % (40.0-70.0); RED BLOOD CELL COUNT(AUTO) 3.22 MIL/uL (4.2-6.2); RED CELL DISTRIBUTION WIDTH 17.6 % (9.0-15.0)
[2021-07-24 12:21] LABS: PLATELET COUNT (AUTO) 45 K/uL (130-430)
[2021-07-24 12:40] VITALS: BP_SYST 134
[2021-07-24] MEDS: IPRATROPIUM/ALBUTEROL SULFATE 3 ML AMPUL.NEB (DUONEB) INH PRN (13:47)
[2021-07-24 16:48] VITALS: BP_SYST 123
[2021-07-24 20:00] VITALS: BP_SYST 97
[2021-07-25] VITALS (15 sets, daily range): BP systolic 99–155
[2021-07-25 07:17] LABS: BASOPHILS % (AUTO) 0.3 % (0.0-2.0); EOSINOPHILS % (AUTO) 0.1 % (0.0-4.0); HEMATOCRIT 23.9 % (36-54); HEMOGLOBIN 7.7 g/dL (14.0-18.0); LYMPHOCYTES # (AUTO) 0.7 K/uL (1.0-5.5); LYMPHOCYTES % (AUTO) 13.3 % (20.5-51.5); MEAN CORPUSCULAR HEMOGLOBIN 29 pg (27-31); MEAN CORPUSCULAR HGB CONC 32 % (32-36); MEAN CORPUSCULAR VOLUME 89 fL (79.0-98.0); MONOCYTES # (AUTO) 0.4 K/uL (0.0-1.0); MONOCYTES % (AUTO) 7.7 % (1.7-9.3); NEUTROPHILS % (AUTO) 78.6 % (40.0-70.0); RED BLOOD CELL COUNT(AUTO) 2.69 MIL/uL (4.2-6.2); RED CELL DISTRIBUTION WIDTH 16.9 % (9.0-15.0); WHITE BLOOD COUNT (AUTO) 5.1 K/uL (4.8-10.8)
[2021-07-25 07:42] LABS: PLATELET COUNT (AUTO) 37 K/uL (130-430)
[2021-07-25 07:43] LABS: ANION GAP 10 (5-15); CALCIUM 8.5 mg/dL (8.4-11.0); CHLORIDE 110 mmol/L (98-107); CREATININE 0.71 mg/dL (0.55-1.30); GLUCOSE 104 mg/dL (70-99); POTASSIUM 3.4 mmol/L (3.5-5.1); SODIUM SERUM 141 mmol/L (136-145); UREA NITROGEN, BLOOD 17 mg/dL (8-21)
[2021-07-25] MEDS ORDERED: AZITHROMYCIN 250 MG TABLET PO SCH (09:00)
[2021-07-25] MEDS: LACTULOSE 20 GM/30 ML UDC PO SCH ×2 (09:51→10:00)
[2021-07-25] MEDS: cefTRIAXone 1 GM in D5W 50 ML IV SCH (10:00)
[2021-07-25] MEDS: PEG 400/HYPROMELLOSE/GLYCERIN 15 ML DROPS OP SCH ×2 (10:02→21:00)
[2021-07-25] MEDS ORDERED: ONDANSETRON HCL 4 MG/2 ML VIAL IVP PRN (11:45)
[2021-07-25] MEDS ORDERED: PANTOPRAZOLE SODIUM 40 MG TAB PO ONE (12:00)
[2021-07-25] MEDS ORDERED: PIPERACILLIN/TAZO 3.375/DEX-IS 50 ML IV ONE (12:45)
[2021-07-25] MEDS ORDERED: PANTOPRAZOLE SODIUM 40 MG/VIAL (PROTONIX) IVP ONE (12:45)
[2021-07-25] MEDS ORDERED: PIPERACILLIN/TAZO 3.375/DEX-IS 50 ML IV SCH (18:00)
[2021-07-25] MEDS ORDERED: THIAMINE HCL 100 MG TABLET PO ONE (19:00)
[2021-07-25] MEDS ORDERED: MULTIVITAMIN/IRON/FOLIC ACID 1 TAB TABLET PO ONE (19:00)
[2021-07-25] MEDS: PANTOPRAZOLE SODIUM 40 MG/VIAL (PROTONIX) IVP SCH (21:55)
[2021-07-25] MEDS ORDERED: chlordiazePOXIDE HCL 25 MG CAPSULE ONE (22:00)
[2021-07-26] VITALS (18 sets, daily range): BP systolic 108–139
[2021-07-26 06:21] LABS: ANION GAP 9 (5-15); CALCIUM 8.3 mg/dL (8.4-11.0); CHLORIDE 110 mmol/L (98-107); CREATININE 0.69 mg/dL (0.55-1.30); GLUCOSE 80 mg/dL (70-99); SODIUM SERUM 143 mmol/L (136-145); UREA NITROGEN, BLOOD 17 mg/dL (8-21)
[2021-07-26 06:24] LABS: PROTHROMBIN TIME 10.4 SECS (9.5-12.5)
[2021-07-26 07:49] LABS: BASOPHILS % (AUTO) 0.7 % (0.0-2.0); EOSINOPHILS % (AUTO) 0.1 % (0.0-4.0); HEMATOCRIT 22.8 % (36-54); HEMOGLOBIN 7.4 g/dL (14.0-18.0); LYMPHOCYTES # (AUTO) 0.8 K/uL (1.0-5.5); LYMPHOCYTES % (AUTO) 18.5 % (20.5-51.5); MEAN CORPUSCULAR HEMOGLOBIN 29 pg (27-31); MEAN CORPUSCULAR HGB CONC 32 % (32-36); MEAN CORPUSCULAR VOLUME 89 fL (79.0-98.0); MONOCYTES # (AUTO) 0.5 K/uL (0.0-1.0); MONOCYTES % (AUTO) 10.2 % (1.7-9.3); NEUTROPHILS # (AUTO) 3.1 K/uL (1.8-7.7); NEUTROPHILS % (AUTO) 70.5 % (40.0-70.0); RED BLOOD CELL COUNT(AUTO) 2.57 MIL/uL (4.2-6.2); RED CELL DISTRIBUTION WIDTH 16.7 % (9.0-15.0); RETICULOCYTE COUNT 1.7 % (0.5-1.5); WHITE BLOOD COUNT (AUTO) 4.4 K/uL (4.8-10.8)
[2021-07-26 07:58] LABS: PLATELET COUNT (AUTO) 37 K/uL (130-430)
[2021-07-26] MEDS ORDERED: POTASSIUM CHLORIDE 40 MEQ, LIDOCAINE JECT 2% PF 100 MG 50 MG in NS 250 ML IV ONE (08:15)
[2021-07-26] MEDS ORDERED: PANTOPRAZOLE SODIUM 40 MG TAB PO SCH (09:00)
[2021-07-26] MEDS ORDERED: MULTIVITAMIN/IRON/FOLIC ACID 1 TAB TABLET PO SCH (09:00)
[2021-07-26 09:35] LABS: TOTAL IRON BIND. CAPACITY 214 ug/dL (250-450)
[2021-07-26] MEDS: PANTOPRAZOLE SODIUM 40 MG/VIAL (PROTONIX) IVP SCH ×2 (09:36→21:56)
[2021-07-26] MEDS: THIAMINE HCL 100 MG TABLET PO SCH (09:39)
[2021-07-26] MEDS: LACTULOSE 20 GM/30 ML UDC PO SCH (09:39)
[2021-07-26] MEDS: PEG 400/HYPROMELLOSE/GLYCERIN 15 ML DROPS OP SCH ×4 (10:21→21:58)
[2021-07-26] MEDS: ACETAMINOPHEN 500 MG TABLET PO PRN (12:04)
[2021-07-26] MEDS: chlordiazePOXIDE HCL 25 MG CAPSULE PO SCH ×2 (15:27→21:56)
[2021-07-27 00:12] VITALS: BP_SYST 144
[2021-07-27 06:53] LABS: BASOPHILS % (AUTO) 0.7 % (0.0-2.0); EOSINOPHILS % (AUTO) 0.2 % (0.0-4.0); HEMATOCRIT 22.4 % (36-54); HEMOGLOBIN 7.4 g/dL (14.0-18.0); LYMPHOCYTES # (AUTO) 0.9 K/uL (1.0-5.5); LYMPHOCYTES % (AUTO) 23.5 % (20.5-51.5); MEAN CORPUSCULAR HEMOGLOBIN 29 pg (27-31); MEAN CORPUSCULAR HGB CONC 33 % (32-36); MEAN CORPUSCULAR VOLUME 87 fL (79.0-98.0); MONOCYTES # (AUTO) 0.5 K/uL (0.0-1.0); MONOCYTES % (AUTO) 11.5 % (1.7-9.3); NEUTROPHILS # (AUTO) 2.6 K/uL (1.8-7.7); NEUTROPHILS % (AUTO) 64.1 % (40.0-70.0); RED BLOOD CELL COUNT(AUTO) 2.58 MIL/uL (4.2-6.2); RED CELL DISTRIBUTION WIDTH 16.7 % (9.0-15.0)
[2021-07-27 07:57] VITALS: BP_SYST 137
[2021-07-27 08:02] LABS: ANION GAP 11 (5-15); CALCIUM 8.6 mg/dL (8.4-11.0); CHLORIDE 109 mmol/L (98-107); CREATININE 0.54 mg/dL (0.55-1.30); GLUCOSE 92 mg/dL (70-99); POTASSIUM 3.6 mmol/L (3.5-5.1); SODIUM SERUM 140 mmol/L (136-145); UREA NITROGEN, BLOOD 11 mg/dL (8-21)
[2021-07-27] MEDS: PANTOPRAZOLE SODIUM 40 MG/VIAL (PROTONIX) IVP SCH ×2 (09:00→21:00)
[2021-07-27] MEDS ORDERED: MULTIVITS,CA,MINERALS/IRON/FA 1 TABLET PO SCH (09:04)
[2021-07-27] MEDS ORDERED: MULTIVITS,CA,MINERALS/IRON/FA 1 TABLET PO ONE (09:15)
[2021-07-27 09:23] LABS: PLATELET COUNT (AUTO) 47 K/uL (130-430)
[2021-07-27] MEDS: chlordiazePOXIDE HCL 25 MG CAPSULE PO SCH ×3 (09:35→21:49)
[2021-07-27] MEDS: PEG 400/HYPROMELLOSE/GLYCERIN 15 ML DROPS OP SCH ×4 (09:36→21:49)
[2021-07-27] MEDS: THIAMINE HCL 100 MG TABLET PO SCH (09:36)
[2021-07-27] MEDS: IPRATROPIUM/ALBUTEROL SULFATE 3 ML AMPUL.NEB (DUONEB) INH PRN (10:11)
[2021-07-27 11:34] VITALS: BP_SYST 124
[2021-07-27] MEDS: cefTRIAXone 1 GM in D5W 50 ML IV SCH (12:00)
[2021-07-27 15:44] VITALS: BP_SYST 130
[2021-07-27 20:00] VITALS: BP_SYST 123
[2021-07-28 07:51] LABS: ANION GAP 9 (5-15); CALCIUM 8.5 mg/dL (8.4-11.0); CHLORIDE 108 mmol/L (98-107); CREATININE 0.64 mg/dL (0.55-1.30); GLUCOSE 89 mg/dL (70-99); POTASSIUM 3.5 mmol/L (3.5-5.1); SODIUM SERUM 140 mmol/L (136-145); UREA NITROGEN, BLOOD 12 mg/dL (8-21)
[2021-07-28 08:00] VITALS: BP_SYST 129
[2021-07-28 08:29] LABS: BASOPHILS % (AUTO) 0.7 % (0.0-2.0); EOSINOPHILS % (AUTO) 0.2 % (0.0-4.0); HEMATOCRIT 23.5 % (36-54); HEMOGLOBIN 7.7 g/dL (14.0-18.0); LYMPHOCYTES # (AUTO) 0.8 K/uL (1.0-5.5); LYMPHOCYTES % (AUTO) 18.7 % (20.5-51.5); MEAN CORPUSCULAR HEMOGLOBIN 29 pg (27-31); MEAN CORPUSCULAR HGB CONC 33 % (32-36); MEAN CORPUSCULAR VOLUME 88 fL (79.0-98.0); MONOCYTES # (AUTO) 0.4 K/uL (0.0-1.0); NEUTROPHILS # (AUTO) 3.2 K/uL (1.8-7.7); NEUTROPHILS % (AUTO) 71.4 % (40.0-70.0); RED BLOOD CELL COUNT(AUTO) 2.68 MIL/uL (4.2-6.2); RED CELL DISTRIBUTION WIDTH 16.4 % (9.0-15.0); WHITE BLOOD COUNT (AUTO) 4.5 K/uL (4.8-10.8)
[2021-07-28] MEDS: PEG 400/HYPROMELLOSE/GLYCERIN 15 ML DROPS OP SCH ×3 (09:02→17:36)
[2021-07-28] MEDS: THIAMINE HCL 100 MG TABLET PO SCH (09:02)
[2021-07-28] MEDS: chlordiazePOXIDE HCL 25 MG CAPSULE PO SCH ×2 (09:02→15:22)
[2021-07-28] MEDS: PANTOPRAZOLE SODIUM 40 MG/VIAL (PROTONIX) IVP SCH (09:02)
[2021-07-28] MEDS: LACTULOSE 20 GM/30 ML UDC PO SCH (09:06)
[2021-07-28 11:46] VITALS: BP_SYST 121
[2021-07-28 12:00] VITALS: BP_SYST 121
[2021-07-28] MEDS: cefTRIAXone 1 GM in D5W 50 ML IV SCH (13:06)
[2021-07-28 14:23] VITALS: BP_SYST 121
[2021-07-28 14:58] LABS: PLATELET COUNT (AUTO) 59 K/uL (130-430)
[2021-07-28 15:35] VITALS: BP_SYST 136
[2021-07-28 16:00] VITALS: BP_SYST 136
== END 2021-07-28 19:45 | DRG 91 ==
LOC: SED 19:36 → STU 07-14 01:09 → SMU 07-17 21:37 → STU 07-23 16:43 → SMU 07-25 12:13 → SIC 07-25 12:50 → STU 07-26 14:27
DX: G92.9 Unspecified toxic encephalopathy (principal); N17.0 Acute kidney failure with tubular necrosis; E43 Unspecified severe protein-calorie malnutrition; J18.9 Pneumonia, unspecified organism; J96.01 Acute respiratory failure with hypoxia; R65.11 Systemic inflammatory response syndrome (SIRS) of non-infectious origin with acute organ dysfunction; S42.212A Unspecified displaced fracture of surgical neck of left humerus, initial encounter for closed fracture; E87.1 Hypo-osmolality and hyponatremia; N39.0 Urinary tract infection, site not specified; K92.0 Hematemesis; R18.8 Other ascites; K72.90 Hepatic failure, unspecified without coma; D64.9 Anemia, unspecified; Z20.822 Contact with and (suspected) exposure to COVID-19; M47.892 Other spondylosis, cervical region; D69.6 Thrombocytopenia, unspecified; G31.9 Degenerative disease of nervous system, unspecified; D63.8 Anemia in other chronic diseases classified elsewhere; B96.20 Unspecified Escherichia coli [E. coli] as the cause of diseases classified elsewhere; E86.0 Dehydration; F10.229 Alcohol dependence with intoxication, unspecified; W18.39XA Other fall on same level, initial encounter; S09.90XA Unspecified injury of head, initial encounter; Z60.2 Problems related to living alone; Z59.00 Homelessness unspecified; Z79.82 Long term (current) use of aspirin; Z79.899 Other long term (current) drug therapy; Y93.89 Activity, other specified; Y99.8 Other external cause status; Z68.24 Body mass index [BMI] 24.0-24.9, adult; Z71.41 Alcohol abuse counseling and surveillance of alcoholic; Y92.480 Sidewalk as the place of occurrence of the external cause
CPT/HCPCS: 36415; 36600; 70450-TC; 70470-TC; 71045; 72125-TC; 73030; 74018; 76376; 76700-TC; 80048; 80053; 80307; 81000; 82140; 82607; 82728; 82746; 82803-TC; 83036; 83540; 83550; 83605; 83735; 83880; 84100; 84132; 84439; 84443; 84484; 85025; 85044; 85610-TC; 85730-TC; 87040-TC; 87081; 87086; 93005; 94640; 94760; 96365; 96372; 96375; 97110-GP; 97116-GP; 97530-GP; 99285; C9113; G0378; G0482; J0696; J1200; J1630; J1885; J1940; J2060; J2543; J3411; J3475; J3480; J3490; J7030; J7050; J7060; Q0144

== ENCOUNTER 2023-07-31 13:29 | Inpatient (IN) | payer BC, MEDICAID ==
[~2023-07-31] VITALS: Ht 162.6 cm; Wt 60.3 kg
[2023-07-31 13:29] VITALS: BP_SYST 161; PULSE 130; RESP 17; TEMP 97; O2SAT 98
[~2023-07-31 13:29] MED LIST changes: -AMIT25TA10 PO; -ASA81 PO; +BENA10TA73 PO; +CEPH250C PO; +CHOL500013 PO; -DOXY25TA61 PO; +FOLI-43 PO; -LISI10TA29 PO; -METO-542 PO; -PANT20TA2 PO; +THIA100T13 PO; +THIA100T73 PO; +TRAM50TA2 PO
[2023-07-31] MEDS ORDERED: NACL 0.9% 2,000 ML IV ONE (14:45)
[2023-07-31] MEDS ORDERED: ONDANSETRON HCL 4 MG/2 ML VIAL IVP ONE (14:45)
[2023-07-31 14:55] LABS: BASOPHILS % (AUTO) 0.2 % (0.0-2.0); HEMATOCRIT 45.4 % (36-54); LYMPHOCYTES # (AUTO) 0.9 K/uL (1.0-5.5); LYMPHOCYTES % (AUTO) 3.4 % (20.5-51.5); MEAN CORPUSCULAR HEMOGLOBIN 31 pg (27-31); MEAN CORPUSCULAR HGB CONC 33 % (32-36); MEAN CORPUSCULAR VOLUME 93 fL (79.0-98.0); MONOCYTES % (AUTO) 3.7 % (1.7-9.3); PLATELET COUNT (AUTO) 146 K/uL (130-430); RED BLOOD CELL COUNT(AUTO) 4.89 MIL/uL (4.2-6.2); RED CELL DISTRIBUTION WIDTH 14.9 % (9.0-15.0); WHITE BLOOD COUNT (AUTO) 28.1 K/uL (4.8-10.8)
[2023-07-31] MEDS ORDERED: PANTOPRAZOLE SODIUM 40 MG/VIAL (PROTONIX) IVP ONE (15:00)
[2023-07-31 15:10] LABS: ANION GAP 29 (5-15); CALCIUM 8.8 mg/dL (8.4-11.0); CARBON DIOXIDE 14 mmol/L (23-29); CHLORIDE 103 mmol/L (98-107); CREATININE 0.98 mg/dL (0.55-1.30); GLUCOSE 106 mg/dL (74-106); POTASSIUM 3.1 mmol/L (3.5-5.1); SODIUM SERUM 146 mmol/L (136-145); UREA NITROGEN, BLOOD 25 mg/dL (8-21)
[2023-07-31 15:14] LABS: PROTHROMBIN TIME 10.6 SECS (9.5-12.5)
[2023-07-31 15:15] LABS: ALANINE AMINOTRANSFERASE 30 U/L (12-78); ALBUMIN 3.6 g/dL (3.4-4.8); ALCOHOL, BLOOD 196 mg/dL (<10); ASPARTATE AMINOTRANSFERASE 43 U/L (10-37); BILIRUBIN,DIRECT 0.4 mg/dL (0.0-0.3); TOTAL BILIRUBIN 0.8 mg/dL (0.0-1.0); TOTAL PROTEIN, SERUM 7.3 g/dL (6.4-8.3)
[2023-07-31 15:18] LABS: NEUTROPHILS % (AUTO) 92.7 % (40.0-70.0)
[2023-07-31] MEDS ORDERED: NACL 0.9% 1,000 ML IV ONE (15:30)
[2023-07-31] MEDS ORDERED: CEFEPIME 2 GM in D5W 100 ML IV ONE (15:30)
[2023-07-31] MEDS ORDERED: VANCOMYCIN HCL 1.25 GM/NS 250 ML IV ONE (15:30)
[2023-07-31] MEDS ORDERED: ACETAMINOPHEN 325 MG TABLET PO ONE (15:45)
[2023-07-31] MEDS ORDERED: KCL 40 mEq in 100 mL (PREMIX) 100 ML IV ONE (17:30)
[2023-07-31] MEDS ORDERED: NACL 0.9% 1,000 ML IV SCH (17:45)
[2023-07-31] MEDS ORDERED: DOCUSATE SODIUM 100 MG CAPSULE PO PRN (18:15)
[2023-07-31] MEDS ORDERED: NALOXONE HCL 0.4 MG/ML AMP (NARCAN) IVP PRN ×2 (18:15)
[2023-07-31] MEDS ORDERED: ZOLPIDEM TARTRATE 5 MG TABLET PO PRN (18:15)
[2023-07-31] MEDS ORDERED: MAGNESIUM SULFATE 50 ML IV PRN (18:15)
[2023-07-31] MEDS ORDERED: MORPHINE 2 MG/ML INJ. SYRINGE IVP PRN (18:15)
[2023-07-31] MEDS ORDERED: MUPIROCIN 2% TOPICAL OINTMENT 22 GM NS PRN (18:15)
[2023-07-31] MEDS ORDERED: ACETAMINOPHEN 500 MG TABLET PO PRN (18:15)
[2023-07-31 18:22] LABS: BILIRUBIN,URINE NEGATIVE (NEGATIVE); BLOOD, URINE 1+ (NEGATIVE); COLOR,URINE YELLOW (YELLOW); GLUCOSE,URINE NEGATIVE (NEGATIVE); KETONES,URINE 3+ (NEGATIVE); NITRITE, URINE NEGATIVE (NEGATIVE); PROTEIN URINE 1+ (NEGATIVE); UROBILINOGEN,URINE 0.2 (0.2-1.0)
[2023-07-31 18:32] LABS: CLARITY/URINE SLIGHTLY HAZY (CLEAR)
[2023-07-31 18:33] LABS: LEUKOCYTE ESTERASE ,URINE TRACE (NEGATIVE)
[2023-07-31 19:11] LABS: BACTERIA,URINE FEW /HPF (None Seen)
[2023-07-31 19:55] VITALS: BP_SYST 153; PULSE 87; RESP 20; TEMP 98.9; O2SAT 98
[2023-07-31] MEDS: 0.45% NACL 1,000 ML IV SCH (20:43)
[2023-07-31] MEDS: chlordiazePOXIDE HCL 25 MG CAPSULE PO SCH (20:44)
[2023-07-31] MEDS: cefTRIAXone 1 GM IVPB PREMIX 50 ML IV SCH (20:44)
[2023-07-31] MEDS: ONDANSETRON HCL 4 MG/2 ML VIAL IVP PRN (20:45)
[2023-07-31] MEDS: POTASSIUM CHLORIDE 20 mEq in 100 mL (PREMIX) 100 ML x 2 doses IV SCH ×2 (20:45→23:28)
[2023-07-31] MEDS: POTASSIUM CHLORIDE 20 MEQ TABLET.ER PO PRN (20:45)
[2023-07-31] MEDS: HEPARIN SODIUM,PORCINE 5,000 UNITS/ML VIAL SUBCUT SCH (21:06)
[2023-07-31] MEDS: MORPHINE 2 MG/ML INJ. SYRINGE IVP PRN (21:09)
[2023-07-31] MEDS: LORazepam 2 MG/ML VIAL IVP PRN (23:29)
[2023-08-01] VITALS (7 sets, daily range): BP systolic 144–165; PULSE 87–111; RESP 16–20; TEMP 98.4–100.2; O2SAT 98–100
[2023-08-01] MEDS: MORPHINE 2 MG/ML INJ. SYRINGE IVP PRN ×2 (02:17→12:07)
[2023-08-01] MEDS: 0.45% NACL 1,000 ML IV SCH ×2 (04:15→16:42)
[2023-08-01 06:07] LABS: BASOPHILS % (AUTO) 0.1 % (0.0-2.0); HEMATOCRIT 35.6 % (36-54); HEMOGLOBIN 11.7 g/dL (14.0-18.0); LYMPHOCYTES # (AUTO) 1.2 K/uL (1.0-5.5); LYMPHOCYTES % (AUTO) 7.1 % (20.5-51.5); MEAN CORPUSCULAR HEMOGLOBIN 30 pg (27-31); MEAN CORPUSCULAR HGB CONC 33 % (32-36); MEAN CORPUSCULAR VOLUME 92 fL (79.0-98.0); MONOCYTES # (AUTO) 1.1 K/uL (0.0-1.0); MONOCYTES % (AUTO) 6.3 % (1.7-9.3); NEUTROPHILS # (AUTO) 14.9 K/uL (1.8-7.7); NEUTROPHILS % (AUTO) 86.5 % (40.0-70.0); PLATELET COUNT (AUTO) 103 K/uL (130-430); RED BLOOD CELL COUNT(AUTO) 3.85 MIL/uL (4.2-6.2); RED CELL DISTRIBUTION WIDTH 14.5 % (9.0-15.0); WHITE BLOOD COUNT (AUTO) 17.3 K/uL (4.8-10.8)
[2023-08-01 06:28] LABS: ANION GAP 19 (5-15); CALCIUM 8.6 mg/dL (8.4-11.0); CARBON DIOXIDE 19 mmol/L (23-29); CHLORIDE 101 mmol/L (98-107); CREATININE 0.86 mg/dL (0.55-1.30); GLUCOSE 77 mg/dL (74-106); POTASSIUM 3.5 mmol/L (3.5-5.1); SODIUM SERUM 139 mmol/L (136-145); UREA NITROGEN, BLOOD 18 mg/dL (8-21)
[2023-08-01] MEDS ORDERED: IPRATROPIUM/ALBUTEROL SULFATE 3 ML AMPUL.NEB (DUONEB) INH PRN (08:15)
[2023-08-01] MEDS: METOPROLOL TARTRATE 25 MG TABLET PO SCH ×2 (09:00→21:02)
[2023-08-01] MEDS ORDERED: BENAZEPRIL HCL Non-Formulary 10 MG TABLET PO SCH (09:00)
[2023-08-01] MEDS: THIAMINE HCL 100 MG TABLET PO SCH (09:15)
[2023-08-01] MEDS: chlordiazePOXIDE HCL 25 MG CAPSULE PO SCH ×3 (09:15→21:01)
[2023-08-01] MEDS: FOLIC ACID 1 MG TABLET PO SCH (09:15)
[2023-08-01] MEDS: LISINOPRIL 10 MG TABLET (PRINIVIL) PO SCH (09:16)
[2023-08-01] MEDS: ACETAMINOPHEN 500 MG TABLET PO PRN ×2 (09:17→21:02)
[2023-08-01] MEDS: HEPARIN SODIUM,PORCINE 5,000 UNITS/ML VIAL SUBCUT SCH ×2 (09:18→21:04)
[2023-08-01 10:29] LABS: BARBITURATE, URINE NEGATIVE (NEG <=200)
[2023-08-01 10:30] LABS: BENZODIAZEPINE, URINE POSITIVE (NEG <=150); CANNABINOID, URINE NEGATIVE (NEG <=50); COCAINE, URINE NEGATIVE (NEG <=150); METHAMPHETAMINES SCREEN,URINE NEGATIVE (NEG <=500); OPIATE, URINE POSITIVE (NEG <=100); PHENCYCLIDINE SCREEN,URINE NEGATIVE (NEG <=25); UR TRICYCLIC ANTIDEPRESSANTS NEGATIVE (NEG <=300); URINE AMPHETAMINE NEGATIVE (NEG <=500); URINE METHADONE NEGATIVE (NEG <=200); URINE OXYCODONE SCREEN NEGATIVE (NEG <=100)
[2023-08-01] MEDS: ONDANSETRON HCL 4 MG/2 ML VIAL IVP PRN (12:08)
[2023-08-01] MEDS: cefTRIAXone 1 GM IVPB PREMIX 50 ML IV SCH (21:05)
[2023-08-02] VITALS (7 sets, daily range): BP systolic 115–154; PULSE 78–90; RESP 16–17; TEMP 96–98.6; O2SAT 95–99
[2023-08-02] MEDS: 0.45% NACL 1,000 ML IV SCH ×3 (00:15→20:15)
[2023-08-02 07:09] LABS: BASOPHILS % (AUTO) 0.1 % (0.0-2.0); EOSINOPHILS % (AUTO) 0.3 % (0.0-4.0); HEMATOCRIT 32.9 % (36-54); HEMOGLOBIN 11.2 g/dL (14.0-18.0); LYMPHOCYTES # (AUTO) 0.8 K/uL (1.0-5.5); LYMPHOCYTES % (AUTO) 14.3 % (20.5-51.5); MEAN CORPUSCULAR HEMOGLOBIN 31 pg (27-31); MEAN CORPUSCULAR HGB CONC 34 % (32-36); MEAN CORPUSCULAR VOLUME 92 fL (79.0-98.0); MONOCYTES # (AUTO) 0.5 K/uL (0.0-1.0); MONOCYTES % (AUTO) 8.5 % (1.7-9.3); NEUTROPHILS # (AUTO) 4.5 K/uL (1.8-7.7); NEUTROPHILS % (AUTO) 76.8 % (40.0-70.0); PLATELET COUNT (AUTO) 65 K/uL (130-430); RED BLOOD CELL COUNT(AUTO) 3.57 MIL/uL (4.2-6.2); RED CELL DISTRIBUTION WIDTH 14.1 % (9.0-15.0); WHITE BLOOD COUNT (AUTO) 5.9 K/uL (4.8-10.8)
[2023-08-02 07:23] LABS: ANION GAP 10 (5-15); CALCIUM 7.7 mg/dL (8.4-11.0); CARBON DIOXIDE 26 mmol/L (23-29); CHLORIDE 99 mmol/L (98-107); CREATININE 0.45 mg/dL (0.55-1.30); GLUCOSE 95 mg/dL (74-106); SODIUM SERUM 135 mmol/L (136-145); UREA NITROGEN, BLOOD 9 mg/dL (8-21)
[2023-08-02 07:35] LABS: POTASSIUM 2.5 mmol/L (3.5-5.1)
[2023-08-02] MEDS: MAGNESIUM SULFATE 50 ML IV ONE ×2 (09:00→10:19)
[2023-08-02] MEDS: chlordiazePOXIDE HCL 25 MG CAPSULE PO SCH ×3 (10:05→20:24)
[2023-08-02] MEDS: FOLIC ACID 1 MG TABLET PO SCH (10:05)
[2023-08-02] MEDS: METOPROLOL TARTRATE 25 MG TABLET PO SCH ×2 (10:06→20:24)
[2023-08-02] MEDS: LISINOPRIL 10 MG TABLET (PRINIVIL) PO SCH (10:06)
[2023-08-02] MEDS: THIAMINE HCL 100 MG TABLET PO SCH (10:07)
[2023-08-02] MEDS: ACETAMINOPHEN 500 MG TABLET PO PRN (10:07)
[2023-08-02] MEDS: HEPARIN SODIUM,PORCINE 5,000 UNITS/ML VIAL SUBCUT SCH ×2 (10:08→20:25)
[2023-08-02] MEDS: POTASSIUM CHLORIDE 20 MEQ TABLET.ER PO PRN (10:15)
[2023-08-02] MEDS: MORPHINE 2 MG/ML INJ. SYRINGE IVP PRN (13:56)
[2023-08-02] MEDS ORDERED: POTASSIUM CHLORIDE 20 MEQ TABLET.ER PO ONE (14:00)
[2023-08-02] MEDS: LORazepam 2 MG/ML VIAL IVP PRN (18:10)
[2023-08-02] MEDS: cefTRIAXone 1 GM IVPB PREMIX 50 ML IV SCH (20:24)
[2023-08-03] VITALS (7 sets, daily range): BP systolic 135–145; PULSE 83–90; RESP 16–20; TEMP 98–98.9; O2SAT 96–98
[2023-08-03] MEDS: 0.45% NACL 1,000 ML IV SCH ×2 (04:43→16:00)
[2023-08-03 07:50] LABS: BASOPHILS % (AUTO) 0.5 % (0.0-2.0); EOSINOPHILS # (AUTO) 0.1 K/uL (0.0-0.4); EOSINOPHILS % (AUTO) 1.4 % (0.0-4.0); HEMATOCRIT 33.8 % (36-54); HEMOGLOBIN 11.2 g/dL (14.0-18.0); LYMPHOCYTES # (AUTO) 1.2 K/uL (1.0-5.5); LYMPHOCYTES % (AUTO) 24.3 % (20.5-51.5); MEAN CORPUSCULAR HEMOGLOBIN 30 pg (27-31); MEAN CORPUSCULAR HGB CONC 33 % (32-36); MEAN CORPUSCULAR VOLUME 91 fL (79.0-98.0); MONOCYTES # (AUTO) 0.5 K/uL (0.0-1.0); MONOCYTES % (AUTO) 11.3 % (1.7-9.3); NEUTROPHILS % (AUTO) 62.5 % (40.0-70.0); PLATELET COUNT (AUTO) 66 K/uL (130-430); RED CELL DISTRIBUTION WIDTH 14.3 % (9.0-15.0); WHITE BLOOD COUNT (AUTO) 4.8 K/uL (4.8-10.8)
[2023-08-03 08:06] LABS: ANION GAP 8 (5-15); CALCIUM 8.6 mg/dL (8.4-11.0); CARBON DIOXIDE 26 mmol/L (23-29); CHLORIDE 102 mmol/L (98-107); CREATININE 0.54 mg/dL (0.55-1.30); GLUCOSE 114 mg/dL (74-106); SODIUM SERUM 136 mmol/L (136-145); UREA NITROGEN, BLOOD 4 mg/dL (8-21)
[2023-08-03] MEDS: FOLIC ACID 1 MG TABLET PO SCH (09:24)
[2023-08-03] MEDS: THIAMINE HCL 100 MG TABLET PO SCH (09:24)
[2023-08-03] MEDS: LISINOPRIL 10 MG TABLET (PRINIVIL) PO SCH (09:25)
[2023-08-03] MEDS: chlordiazePOXIDE HCL 25 MG CAPSULE PO SCH ×3 (09:25→21:26)
[2023-08-03] MEDS: METOPROLOL TARTRATE 25 MG TABLET PO SCH ×2 (09:25→21:26)
[2023-08-03] MEDS: HEPARIN SODIUM,PORCINE 5,000 UNITS/ML VIAL SUBCUT SCH ×2 (09:36→21:42)
[2023-08-03] MEDS: POTASSIUM CHLORIDE 20 MEQ TABLET.ER PO PRN (10:49)
[2023-08-03] MEDS ORDERED: LIB25 PO (18:18)
[2023-08-03] MEDS ORDERED: LEVO-62 PO (18:19)
[2023-08-03] MEDS ORDERED: POTASSIUM CHLORIDE 20 MEQ TABLET.ER PO ONE (18:30)
[2023-08-03] MEDS: MORPHINE 2 MG/ML INJ. SYRINGE IVP PRN (19:04)
[2023-08-03] MEDS: cefTRIAXone 1 GM IVPB PREMIX 50 ML IV SCH (20:12)
[2023-08-03] MEDS: ACETAMINOPHEN 500 MG TABLET PO PRN (20:18)
[2023-08-03] MEDS: ONDANSETRON HCL 4 MG/2 ML VIAL IVP PRN (23:19)
[2023-08-04] MEDS: LORazepam 2 MG/ML VIAL IVP PRN (02:12)
[2023-08-04] MEDS: 0.45% NACL 1,000 ML IV SCH ×3 (02:15→23:29)
[2023-08-04 07:38] VITALS: PULSE 74; O2SAT 99
[2023-08-04 07:56] VITALS: O2SAT 99
[2023-08-04 08:05] VITALS: BP_SYST 143; PULSE 74; RESP 16; TEMP 98.9; O2SAT 99
[2023-08-04 08:31] LABS: BASOPHILS % (AUTO) 0.8 % (0.0-2.0); EOSINOPHILS # (AUTO) 0.1 K/uL (0.0-0.4); EOSINOPHILS % (AUTO) 2.1 % (0.0-4.0); HEMATOCRIT 33.8 % (36-54); HEMOGLOBIN 11.3 g/dL (14.0-18.0); LYMPHOCYTES # (AUTO) 1.2 K/uL (1.0-5.5); LYMPHOCYTES % (AUTO) 25.5 % (20.5-51.5); MEAN CORPUSCULAR HEMOGLOBIN 31 pg (27-31); MEAN CORPUSCULAR HGB CONC 33 % (32-36); MEAN CORPUSCULAR VOLUME 92 fL (79.0-98.0); MONOCYTES # (AUTO) 0.7 K/uL (0.0-1.0); NEUTROPHILS # (AUTO) 2.6 K/uL (1.8-7.7); NEUTROPHILS % (AUTO) 56.6 % (40.0-70.0); PLATELET COUNT (AUTO) 73 K/uL (130-430); RED BLOOD CELL COUNT(AUTO) 3.69 MIL/uL (4.2-6.2); RED CELL DISTRIBUTION WIDTH 14.3 % (9.0-15.0); WHITE BLOOD COUNT (AUTO) 4.6 K/uL (4.8-10.8)
[2023-08-04] MEDS: METOPROLOL TARTRATE 25 MG TABLET PO SCH ×2 (08:46→20:45)
[2023-08-04] MEDS: FOLIC ACID 1 MG TABLET PO SCH (08:46)
[2023-08-04 08:47] LABS: ANION GAP 6 (5-15); CALCIUM 8.6 mg/dL (8.4-11.0); CARBON DIOXIDE 26 mmol/L (23-29); CHLORIDE 105 mmol/L (98-107); GLUCOSE 109 mg/dL (74-106); POTASSIUM 4.2 mmol/L (3.5-5.1); SODIUM SERUM 137 mmol/L (136-145); UREA NITROGEN, BLOOD 7 mg/dL (8-21)
[2023-08-04] MEDS: THIAMINE HCL 100 MG TABLET PO SCH (08:47)
[2023-08-04] MEDS: chlordiazePOXIDE HCL 25 MG CAPSULE PO SCH ×3 (08:47→20:45)
[2023-08-04] MEDS: LISINOPRIL 10 MG TABLET (PRINIVIL) PO SCH (08:47)
[2023-08-04] MEDS: HEPARIN SODIUM,PORCINE 5,000 UNITS/ML VIAL SUBCUT SCH ×2 (08:51→20:48)
[2023-08-04 11:07] VITALS: BP_SYST 133; PULSE 80; RESP 16; TEMP 98.3; O2SAT 96
[2023-08-04] MEDS: ONDANSETRON HCL 4 MG/2 ML VIAL IVP PRN (11:51)
[2023-08-04 15:06] VITALS: BP_SYST 142; PULSE 79; RESP 16; TEMP 98.5; O2SAT 96
[2023-08-04 20:00] VITALS: BP_SYST 127; PULSE 85; RESP 18; TEMP 98; O2SAT 97
[2023-08-04] MEDS: ACETAMINOPHEN 500 MG TABLET PO PRN (20:45)
[2023-08-04] MEDS: cefTRIAXone 1 GM IVPB PREMIX 50 ML IV SCH (21:04)
[2023-08-05] VITALS: BP_SYST 144; PULSE 73; RESP 18; TEMP 98.3; O2SAT 100
[2023-08-05 05:24] LABS: BASOPHILS % (AUTO) 0.5 % (0.0-2.0); EOSINOPHILS # (AUTO) 0.1 K/uL (0.0-0.4); EOSINOPHILS % (AUTO) 1.6 % (0.0-4.0); HEMATOCRIT 33.9 % (36-54); HEMOGLOBIN 11.3 g/dL (14.0-18.0); LYMPHOCYTES # (AUTO) 1.4 K/uL (1.0-5.5); LYMPHOCYTES % (AUTO) 23.2 % (20.5-51.5); MEAN CORPUSCULAR HEMOGLOBIN 30 pg (27-31); MEAN CORPUSCULAR HGB CONC 33 % (32-36); MEAN CORPUSCULAR VOLUME 91 fL (79.0-98.0); MONOCYTES # (AUTO) 0.8 K/uL (0.0-1.0); MONOCYTES % (AUTO) 13.4 % (1.7-9.3); NEUTROPHILS # (AUTO) 3.7 K/uL (1.8-7.7); NEUTROPHILS % (AUTO) 61.3 % (40.0-70.0); PLATELET COUNT (AUTO) 79 K/uL (130-430); RED BLOOD CELL COUNT(AUTO) 3.73 MIL/uL (4.2-6.2); RED CELL DISTRIBUTION WIDTH 14.5 % (9.0-15.0)
[2023-08-05 05:39] LABS: ANION GAP 7 (5-15); CALCIUM 9.4 mg/dL (8.4-11.0); CARBON DIOXIDE 25 mmol/L (23-29); CHLORIDE 101 mmol/L (98-107); CREATININE 0.52 mg/dL (0.55-1.30); GLUCOSE 107 mg/dL (74-106); POTASSIUM 3.9 mmol/L (3.5-5.1); SODIUM SERUM 133 mmol/L (136-145); UREA NITROGEN, BLOOD 10 mg/dL (8-21)
[2023-08-05 08:00] VITALS: BP_SYST 129; PULSE 74; RESP 18; TEMP 98.2; O2SAT 96; O2SAT 99
[2023-08-05] MEDS: chlordiazePOXIDE HCL 25 MG CAPSULE PO SCH ×2 (09:54→15:00)
[2023-08-05] MEDS: THIAMINE HCL 100 MG TABLET PO SCH (09:54)
[2023-08-05] MEDS: LISINOPRIL 10 MG TABLET (PRINIVIL) PO SCH (09:55)
[2023-08-05] MEDS: METOPROLOL TARTRATE 25 MG TABLET PO SCH (09:55)
[2023-08-05] MEDS: FOLIC ACID 1 MG TABLET PO SCH (09:56)
[2023-08-05] MEDS: HEPARIN SODIUM,PORCINE 5,000 UNITS/ML VIAL SUBCUT SCH (09:57)
[2023-08-05 11:15] VITALS: BP_SYST 123; PULSE 69; RESP 16; TEMP 97.1; O2SAT 100
[2023-08-05 13:05] VITALS: BP_SYST 129; PULSE 74; RESP 18; TEMP 98.8; O2SAT 96
[2023-08-05 15:20] VITALS: BP_SYST 131; PULSE 71; RESP 16; TEMP 97; O2SAT 98
== END 2023-08-05 16:35 | DRG 871 ==
LOC: SED 13:29 → STU 17:24 → SMU 08-03 13:20
PROVIDERS: ADMIT General Practice; ATTEND General Practice
PROC: 05HY33Z Insertion of Infusion Device into Upper Vein, Percutaneous Approach (ICD-10-PCS; principal; 2023-08-02)
PROC: B54NZZA Ultrasonography of Left Upper Extremity Veins, Guidance (ICD-10-PCS; 2023-08-02)
DX: A41.9 Sepsis, unspecified organism (principal); K85.20 Alcohol induced acute pancreatitis without necrosis or infection; Z59.00 Homelessness unspecified; N39.0 Urinary tract infection, site not specified; F10.139 Alcohol abuse with withdrawal, unspecified; E87.0 Hyperosmolality and hypernatremia; I10 Essential (primary) hypertension; E86.0 Dehydration; E87.6 Hypokalemia; E83.42 Hypomagnesemia
CPT/HCPCS: 36415; 70450-TC; 71045; 76376; 80048; 80076; 80307; 81000; 81001; 81015; 83037; 83690; 83735; 84484; 85025; 85610-TC; 85730-TC; 87040; 93005; 94760; 96365; 96375; 97110-GP; 97116-GP; 97530-GP; 99291; C9113; G0378; G0482; J0692; J0696; J1644; J2060; J2270; J2405; J3370; J3475; J3480; J7060

== ENCOUNTER 2023-09-12 20:37 | Emergency (ER) | payer BC, MEDICAID ==
[~2023-09-12] VITALS: Ht 154.9 cm; Wt 61.2 kg
[~2023-09-12 20:37] MED LIST changes: +LEVO-62 PO; +LIB25 PO
[2023-09-12 21:30] VITALS: BP_SYST 128; PULSE 83; RESP 18; TEMP 98.2; O2SAT 96
[2023-09-13] LABS: BASOPHILS # (AUTO) 0.1 K/uL (0.0-0.2); BASOPHILS % (AUTO) 1.2 % (0.0-2.0); EOSINOPHILS % (AUTO) 0.4 % (0.0-4.0); HEMOGLOBIN 10.6 g/dL (14.0-18.0); LYMPHOCYTES # (AUTO) 1.5 K/uL (1.0-5.5); LYMPHOCYTES % (AUTO) 33.6 % (20.5-51.5); MEAN CORPUSCULAR HEMOGLOBIN 32 pg (27-31); MEAN CORPUSCULAR HGB CONC 34 % (32-36); MEAN CORPUSCULAR VOLUME 93 fL (79.0-98.0); MONOCYTES # (AUTO) 0.5 K/uL (0.0-1.0); MONOCYTES % (AUTO) 10.9 % (1.7-9.3); NEUTROPHILS # (AUTO) 2.4 K/uL (1.8-7.7); NEUTROPHILS % (AUTO) 53.9 % (40.0-70.0); PLATELET COUNT (AUTO) 116 K/uL (130-430); RED BLOOD CELL COUNT(AUTO) 3.34 MIL/uL (4.2-6.2); RED CELL DISTRIBUTION WIDTH 16.8 % (9.0-15.0); WHITE BLOOD COUNT (AUTO) 4.5 K/uL (4.8-10.8)
[2023-09-13 00:07] LABS: ANION GAP 18 (5-15); CALCIUM 8.5 mg/dL (8.4-11.0); CARBON DIOXIDE 23 mmol/L (23-29); CHLORIDE 105 mmol/L (98-107); CREATININE 0.63 mg/dL (0.55-1.30); GLUCOSE 85 mg/dL (74-106); POTASSIUM 3.1 mmol/L (3.5-5.1); SODIUM SERUM 146 mmol/L (136-145); UREA NITROGEN, BLOOD 12 mg/dL (8-21)
[2023-09-13] MEDS ORDERED: POTASSIUM CHLORIDE 20 MEQ TABLET.ER PO ONE (00:30)
[2023-09-13 01:36] VITALS: BP_SYST 128; PULSE 99; RESP 20; TEMP 98; O2SAT 100
== END 2023-09-13 05:29 | disposition home or self-care (01) ==
LOC: SED 20:37
DX: F10.129 Alcohol abuse with intoxication, unspecified (principal); E87.6 Hypokalemia; E11.9 Type 2 diabetes mellitus without complications; I10 Essential (primary) hypertension; Z79.899 Other long term (current) drug therapy; Y90.6 Blood alcohol level of 120-199 mg/100 ml
CPT/HCPCS: 36415; 80048; 85025; 99283